=== PATIENT | male | born 1970 | race Caucasian/White ===

== ENCOUNTER 2021-01-21 19:29 | Emergency (ER) | payer OTHER ==
[2021-01-21 19:53] VITALS: BMI 27.8
[2021-01-21 21:10] LABS: BASO % 0.7 % (0-2.0); EOS % 1.6 % (0-4.5); HEMATOCRIT 53.5 % (35.4-49); HEMOGLOBIN 18.6 GM/dL (11.7-16.9); LYMPH % 30.6 % (8-40); MCHC 34.8 g/dl (32.0-35.9); MEAN CELL VOLUME 103.4 fl (80-96); MEAN PLT VOLUME 7.3 fl (7.5-11.1); MONO % 7.7 % (3.8-10.2); NEUT % 59.4 % (42.8-82.8); PLATELET COUNT 194 10^3/uL (134-434); RBC 5.17 M/mm3 (4.00-5.60); RDW 14.8 % (11.9-15.9); WHITE BLOOD COUNT 7.1 K/mm3 (4.0-10.0)
[2021-01-21 21:16] LABS: INR 0.86 (0.83-1.09); PROTHROMBIN TIME (PATIENT) 10.5 SEC (9.7-13.0)
[2021-01-21 21:18] LABS: ACTIVATED PTT 31.9 SECONDS (25.2-36.5)
[2021-01-21] MEDS ORDERED: LACTATED RINGERS SOLUTION 1000 ML INFUS.BAG IV ONE (21:25)
[2021-01-21 21:34] LABS: CHLORIDE 103 mmol/L (98-107); SODIUM 139 mmol/L (136-145)
[2021-01-21 21:34] LABS: EPI CELLS 1 /uL (0-25.1); HYALINE CASTS 0 /uL (0-3.1); URINE APPEARANCE CLEAR; URINE BACTERIA 31 /uL (0-1359); URINE BILIRUBIN NEGATIVE (NEGATIVE); URINE COLOR YELLOW; URINE GLUCOSE (UA) NEGATIVE (NEGATIVE); URINE KETONE NEGATIVE (NEGATIVE); URINE LEUK ESTERASE NEGATIVE (NEGATIVE); URINE NITRITE NEGATIVE (NEGATIVE); URINE PROTEIN NEGATIVE (NEGATIVE); URINE RBC 11 /uL (0-23.9); URINE WBC 3 /uL (0-25.8)
[2021-01-21 21:36] LABS: ANION GAP 7 MMOL/L (8-16); BLOOD UREA NITROGEN 7.4 mg/dL (7-18); CALCIUM 8.8 mg/dL (8.5-10.1); CO2 28 mmol/L (21-32)
[2021-01-21 21:37] LABS: GLUCOSE,RANDOM 88 mg/dL (74-106)
[2021-01-21 21:39] LABS: SGOT/AST 65 U/L (15-37); SGPT/ALT 66 U/L (13-61)
[2021-01-21] MEDS ORDERED: ACETAMINOPHEN 1000 MG/100 ML VIAL (NON FORMULARY) IVPB ONE (21:40)
[2021-01-21 21:41] LABS: BILIRUBIN,TOTAL 0.5 mg/dL (0.2-1); TOT PROT 7.6 g/dl (6.4-8.2)
[2021-01-21] MEDS ORDERED: ACETAMINOPHEN INJECTION 100 ML IVPB ONE (21:41)
[2021-01-21 21:42] LABS: ALK PHOS 102 U/L (45-117)
[2021-01-21] MEDS ORDERED: LORazepam 2 MG TABLET PO ONE ×2 (22:01→22:05)
[2021-01-21] MEDS ORDERED: LORazepam 1 MG TABLET ONE (22:09)
[2021-01-21 22:31] LABS: LIPASE 89 U/L (73-393)
[2021-01-22 01:11] VITALS: BP 128/89; PULSE 77; TEMP 97.8
== END 2021-01-22 01:11 | disposition home or self-care (01) ==
LOC: JER 19:29
PROC: 3E0333Z Introduction of Anti-inflammatory into Peripheral Vein, Percutaneous Approach (ICD-10-PCS; principal; 2021-01-21)
DX: F10.20 Alcohol dependence, uncomplicated (principal); I71.4 Abdominal aortic aneurysm, without rupture
CPT/HCPCS: 36415; 70450-TC; 71260-TC; 74177-TC; 80053; 80307; 81003; 82140; 82550; 83690; 84484; 85025; 85384; 85610; 85730; 86850; 86900; 86901; 87086; 93005; 93010; 99285-25; C9803; J0131; Q9967; U0003; U0005

== ENCOUNTER 2021-02-20 04:52 | Day surgery (SDC) | payer OTHER ==
[2021-02-19 11:23] VITALS: BMI 26.2
[2021-02-20] MEDS ORDERED: MIDAZOLAM HCL 2 MG/2 ML SINGLE DOSE VIAL ONE (11:39)
[2021-02-20] MEDS ORDERED: TETRACAINE/BENZOCAINE/BUTAMBEN 20 GM SPR TP ONE (11:45)
[2021-02-20 12:49] VITALS: TEMP 98
[2021-02-20 14:01] VITALS: BP 154/86; PULSE 59
== END 2021-02-20 13:53 | disposition home or self-care (01) ==
LOC: JASU-ENDO 04:52
PROVIDERS: ATTEND Internal Medicine Gastroenterology
PROC: 0DBN8ZX Excision of Sigmoid Colon, Via Natural or Artificial Opening Endoscopic, Diagnostic (ICD-10-PCS; 2021-02-20)
PROC: 0DBL8ZX Excision of Transverse Colon, Via Natural or Artificial Opening Endoscopic, Diagnostic (ICD-10-PCS; 2021-02-20)
PROC: 3E0H8KZ Introduction of Other Diagnostic Substance into Lower GI, Via Natural or Artificial Opening Endoscopic (ICD-10-PCS; 2021-02-20)
PROC: 0DB98ZX Excision of Duodenum, Via Natural or Artificial Opening Endoscopic, Diagnostic (ICD-10-PCS; 2021-02-20)
PROC: 0DB68ZX Excision of Stomach, Via Natural or Artificial Opening Endoscopic, Diagnostic (ICD-10-PCS; 2021-02-20)
PROC: 0DBP8ZX Excision of Rectum, Via Natural or Artificial Opening Endoscopic, Diagnostic (ICD-10-PCS; principal; 2021-02-20 11:00)
DX: Z12.11 Encounter for screening for malignant neoplasm of colon (principal); D12.5 Benign neoplasm of sigmoid colon; D12.3 Benign neoplasm of transverse colon; K62.1 Rectal polyp; K64.8 Other hemorrhoids; K57.30 Diverticulosis of large intestine without perforation or abscess without bleeding; K29.50 Unspecified chronic gastritis without bleeding

== ENCOUNTER 2021-05-28 04:56 | Day surgery (SDC) | payer OTHER ==
[2021-05-24 13:41] VITALS: BMI 25.1
[2021-05-28 10:22] VITALS: TEMP 98.8
[2021-05-28 13:09] VITALS: BP 133/80; PULSE 64
== END 2021-05-28 13:35 | disposition home or self-care (01) ==
LOC: JRADIR 04:56
PROVIDERS: ATTEND Internal Medicine Pulmonary Disease
DX: Z53.9 Procedure and treatment not carried out, unspecified reason (principal)
CPT/HCPCS: 32408

== ENCOUNTER 2021-06-19 14:02 | Emergency (ER) | payer OTHER ==
[2021-06-19 14:15] VITALS: TEMP 97.8; BMI 26.6
[2021-06-19] MEDS ORDERED: ACETAMINOPHEN 1000 MG/100 ML BAG IVPB ONE (14:49)
[2021-06-19] MEDS ORDERED: ALBUTEROL SO4 2.5/IPRATROPIUM 0.5 INH SOL 3 ML VIAL.NEB. NEB ONE ×2 (15:15→16:05)
[2021-06-19] MEDS: ALBUTEROL SO4 2.5/IPRATROPIUM 0.5 INH SOL 3 ML VIAL.NEB. NEB SCH ×3 (15:24→16:10)
[2021-06-19 15:30] LABS: EOS % 1.3 % (0-4.5); HEMATOCRIT 47.9 % (35.4-49); HEMOGLOBIN 16.2 GM/dL (11.7-16.9); LYMPH % 43.5 % (8-40); MCHC 33.8 g/dl (32.0-35.9); MEAN CELL VOLUME 100.6 fl (80-96); MEAN PLT VOLUME 7.2 fl (7.5-11.1); MONO % 7.8 % (3.8-10.2); NEUT % 46.4 % (42.8-82.8); PLATELET COUNT 226 10^3/uL (134-434); RBC 4.76 M/mm3 (4.00-5.60); RDW 14.7 % (11.9-15.9); WHITE BLOOD COUNT 7.4 K/mm3 (4.0-10.0)
[2021-06-19 15:37] LABS: INR 0.91 (0.83-1.09); PROTHROMBIN TIME (PATIENT) 10.5 SEC (9.7-13.0)
[2021-06-19 15:39] LABS: ACTIVATED PTT 32.5 SECONDS (25.2-36.5)
[2021-06-19 15:52] LABS: ALBUMIN 3.9 g/dl (3.4-5.0); CALCIUM 9.3 mg/dL (8.5-10.1)
[2021-06-19 15:57] LABS: BILIRUBIN,TOTAL 0.2 mg/dL (0.2-1); TOT PROT 7.2 g/dl (6.4-8.2)
[2021-06-19] MEDS ORDERED: methylPREDNISolone NA SUCC 125 MG/2 ML VIAL IVPUSH ONE (16:24)
[2021-06-19] MEDS ORDERED: methylPREDNISolone NA SUCC 125 MG/2 ML VIAL ONE (17:21)
[2021-06-19 17:58] VITALS: BP 142/84; PULSE 84
== END 2021-06-19 18:35 | disposition home or self-care (01) ==
LOC: JER 14:02
PROC: 3E0F7GC Introduction of Other Therapeutic Substance into Respiratory Tract, Via Natural or Artificial Opening (ICD-10-PCS; principal; 2021-06-19)
PROC: 3E033GC Introduction of Other Therapeutic Substance into Peripheral Vein, Percutaneous Approach (ICD-10-PCS; 2021-06-19)
DX: J44.1 Chronic obstructive pulmonary disease with (acute) exacerbation (principal); R91.1 Solitary pulmonary nodule
CPT/HCPCS: 36415; 71275-TC; 80053; 82550; 82553; 83690; 84484; 85025; 85610; 85730; 86850; 86900; 86901; 93005; 93010; 99285-25; C9803; Q9967; U0003; U0005

== ENCOUNTER 2021-08-07 11:54 | Emergency (ER) | payer OTHER ==
[2021-08-07 12:21] VITALS: BMI 26.4
[2021-08-07] MEDS ORDERED: ONDANSETRON 4 MG/2 ML VIAL IVPUSH ONE (13:13)
[2021-08-07] MEDS ORDERED: SODIUM CHLORIDE 0.9% 1000 ML INFUS.BAG IV ONE (13:13)
[2021-08-07] MEDS ORDERED: morphine CARPU-JECT 4 MG/1 ML DISP.SYRIN IVPUSH ONE (13:13)
[2021-08-07] MEDS ORDERED: ONDANSETRON 4 MG/2 ML VIAL ONE (13:27)
[2021-08-07] MEDS ORDERED: morphine SULFATE 4 MG/ML VIAL ONE (13:27)
[2021-08-07 13:37] LABS: URINE APPEARANCE CLEAR; URINE BILIRUBIN NEGATIVE (NEGATIVE); URINE COLOR YELLOW; URINE GLUCOSE (UA) NEGATIVE (NEGATIVE); URINE KETONE NEGATIVE (NEGATIVE); URINE LEUK ESTERASE NEGATIVE (NEGATIVE); URINE NITRITE NEGATIVE (NEGATIVE); URINE PROTEIN NEGATIVE (NEGATIVE); URINE UROBILINOGEN 0.2 mg/dL (0.2-1.0)
[2021-08-07 13:47] LABS: BASO % 0.7 % (0-2.0); EOS % 0.3 % (0-4.5); HEMOGLOBIN 16.9 GM/dL (11.7-16.9); LYMPH % 29.4 % (8-40); MCHC 33.7 g/dl (32.0-35.9); MEAN CELL VOLUME 100.8 fl (80-96); MEAN PLT VOLUME 8.2 fl (7.5-11.1); MONO % 7.3 % (3.8-10.2); NEUT % 62.3 % (42.8-82.8); PLATELET COUNT 233 10^3/uL (134-434); RBC 4.96 M/mm3 (4.00-5.60); RDW 14.6 % (11.9-15.9); WHITE BLOOD COUNT 7.9 K/mm3 (4.0-10.0)
[2021-08-07 13:54] LABS: PROTHROMBIN TIME (PATIENT) 11.5 SEC (9.7-13.0)
[2021-08-07 13:57] LABS: ACTIVATED PTT 35.5 SECONDS (25.2-36.5)
[2021-08-07 14:19] LABS: CALCIUM 9.2 mg/dL (8.5-10.1)
[2021-08-07 14:20] LABS: ALBUMIN 3.9 g/dl (3.4-5.0); BLOOD UREA NITROGEN 14.1 mg/dL (7-18); MAGNESIUM 2.2 mg/dL (1.8-2.4)
[2021-08-07 14:22] LABS: CREATININE 1.4 mg/dL (0.55-1.3)
[2021-08-07 14:24] LABS: BILIRUBIN,TOTAL 0.3 mg/dL (0.2-1); TOT PROT 7.1 g/dl (6.4-8.2)
[2021-08-07 14:30] LABS: LACTIC ACID 2.3 mmol/L (0.4-2.0)
[2021-08-07] MEDS ORDERED: ACETAMINOPHEN 1000 MG/100 ML BAG IVPB ONE (16:15)
[2021-08-07] MEDS ORDERED: ACETAMINOPHEN INJECTION 100 ML IVPB ONE (16:18)
[2021-08-07] MEDS ORDERED: SODIUM CHLORIDE 0.9% 500 ML INFUS.BAG IV ONE (16:23)
[2021-08-07 16:47] VITALS: TEMP 97.6
[2021-08-07 18:04] VITALS: BP 123/83; PULSE 70
== END 2021-08-07 18:50 | disposition home or self-care (01) ==
LOC: JER 11:54
PROC: 3E033GC Introduction of Other Therapeutic Substance into Peripheral Vein, Percutaneous Approach (ICD-10-PCS; principal; 2021-08-07)
DX: R07.9 Chest pain, unspecified (principal); R10.84 Generalized abdominal pain
CPT/HCPCS: 36415; 71045-TC-FY; 71275-TC; 74174-TC; 76705-TC; 80053; 81003; 82746; 83605; 83690; 83735; 84484; 85025; 85610; 85730; 86850; 86900; 86901; 93005; 93010; 99285-25; Q9967

== ENCOUNTER 2021-11-14 20:05 | Emergency (ER) | payer OTHER ==
[2021-11-14 20:20] VITALS: BP 96/65; PULSE 90; TEMP 98.2; BMI 25.8
[2021-11-14] MEDS ORDERED: ONDANSETRON 4 MG/2 ML VIAL IVPUSH ONE (22:21)
[2021-11-14] MEDS ORDERED: morphine CARPU-JECT 2 MG/1 ML DISP.SYRIN IVPUSH ONE (22:21)
[2021-11-14] MEDS ORDERED: ONDANSETRON 4 MG/2 ML VIAL ONE (22:49)
[2021-11-14] MEDS ORDERED: morphine SULFATE 4 MG/ML VIAL ONE (22:49)
[2021-11-14 23:25] LABS: BASO % 0.6 % (0-2.0); EOS % 1.2 % (0-4.5); HEMATOCRIT 46.3 % (35.4-49); HEMOGLOBIN 15.6 GM/dL (11.7-16.9); LYMPH % 29.4 % (8-40); MCH 33.8 pg (25.7-33.7); MCHC 33.7 g/dl (32.0-35.9); MEAN CELL VOLUME 100.4 fl (80-96); MEAN PLT VOLUME 7.7 fl (7.5-11.1); MONO % 9.7 % (3.8-10.2); NEUT % 59.1 % (42.8-82.8); PLATELET COUNT 214 10^3/uL (134-434); RBC 4.61 M/mm3 (4.00-5.60); WHITE BLOOD COUNT 7.3 K/mm3 (4.0-10.0)
[2021-11-14 23:34] LABS: INR 0.93 (0.83-1.09); PROTHROMBIN TIME (PATIENT) 10.7 SEC (9.7-13.0)
[2021-11-14 23:36] LABS: ACTIVATED PTT 32.2 SECONDS (25.2-36.5)
[2021-11-14 23:58] LABS: CALCIUM 9.1 mg/dL (8.5-10.1)
[2021-11-14 23:59] LABS: ALBUMIN 3.9 g/dl (3.4-5.0); BLOOD UREA NITROGEN 15.3 mg/dL (7-18); MAGNESIUM 2.5 mg/dL (1.8-2.4)
[2021-11-15 00:01] LABS: LACTIC ACID 2.1 mmol/L (0.4-2.0)
[2021-11-15 00:02] LABS: CREATININE 0.9 mg/dL (0.55-1.3); PHOSPHOROUS 4.4 mg/dL (2.5-4.9)
[2021-11-15 00:03] LABS: BILIRUBIN,TOTAL 0.4 mg/dL (0.2-1)
[2021-11-15] MEDS ORDERED: LACTATED RINGERS SOLUTION 1000 ML INFUS.BAG IV ONE (00:21)
[2021-11-15] MEDS ORDERED: morphine CARPU-JECT 4 MG/1 ML DISP.SYRIN IVPUSH ONE (01:25)
[2021-11-15] MEDS ORDERED: morphine SULFATE 4 MG/ML VIAL ONE (01:25)
== END 2021-11-15 03:31 | disposition home or self-care (01) ==
LOC: JER 20:05
PROC: 3E033GC Introduction of Other Therapeutic Substance into Peripheral Vein, Percutaneous Approach (ICD-10-PCS; principal; 2021-11-14)
DX: R10.31 Right lower quadrant pain (principal)
CPT/HCPCS: 36415; 71046-TC-FY; 74177-TC; 80053; 83605; 83690; 83735; 84100; 84484; 85025; 85610; 85730; 87040; 93005; 93010; 99285-25; Q9967